=== PATIENT | male | born 1955 | race Caucasian/White ===

== ENCOUNTER 2023-10-17 15:08 | Inpatient (IN) | payer OTHER ==
[2023-10-17 17:01] LABS: BASO % 0.3 % (0-2.0); EOS % 0.6 % (0-4.5); HEMATOCRIT 46.3 % (35.4-49); HEMOGLOBIN 15.3 GM/dL (11.7-16.9); LYMPH % 15.3 % (8-40); MCH 32.3 pg (25.7-33.7); MCHC 33.1 g/dl (32.0-35.9); MEAN CELL VOLUME 97.6 fl (80-96); MEAN PLT VOLUME 9.1 fl (7.5-11.1); MONO % 7.9 % (3.8-10.2); NEUT % 75.9 % (42.8-82.8); PLATELET COUNT 230 10^3/uL (134-434); RBC 4.74 M/mm3 (4.00-5.60); WHITE BLOOD COUNT 10.7 K/mm3 (4.0-10.0)
[2023-10-17 17:03] LABS: VENOUS BASE EXCESS -2.2 mmol/L (-2-2); VENOUS O2 SATURATION 80.5 % (70-80); VENOUS PCO2 40.7 mmHg (38-52); VENOUS PH 7.368 (7.310-7.410)
[2023-10-17 17:24] LABS: POTASSIUM 5.7 mmol/L (3.5-5.1)
[2023-10-17 17:26] LABS: ALBUMIN 3.8 g/dl (3.4-5.0); CALCIUM 9.8 mg/dL (8.5-10.1)
[2023-10-17 17:27] LABS: BLOOD UREA NITROGEN 17.3 mg/dL (7-18)
[2023-10-17 17:29] LABS: CREATININE 0.7 mg/dL (0.55-1.3)
[2023-10-17 17:31] LABS: BILIRUBIN,TOTAL 0.8 mg/dL (0.2-1); TOT PROT 7.7 g/dl (6.4-8.2)
[2023-10-18] MEDS ORDERED: ALBUTEROL SO4 2.5/IPRATROPIUM 0.5 INH SOL 3 ML VIAL.NEB. NEB ONE (01:26)
[2023-10-18] MEDS ORDERED: BISACODYL 10 MG SUPP.RECT RC PRN ×2 (02:46→03:30)
[2023-10-18] MEDS ORDERED: SENNOSIDES 8.6MG TABLET (FP) PO PRN ×2 (02:46→03:30)
[2023-10-18] MEDS ORDERED: MIDODRINE HCL 5 MG TABLET PO PRN (02:46)
[2023-10-18] MEDS ORDERED: POLYETHYLENE GLYCOL (HEALTHYLAX) 3350 17 GM PACKET PO PRN (02:46)
[2023-10-18] MEDS ORDERED: DOCUSATE SODIUM 100 MG CAPSULE (FP) PO PRN ×2 (02:46→03:30)
[2023-10-18] MEDS ORDERED: BACLOFEN 10 MG TABLET (FP) PO PRN (02:46)
[2023-10-18] MEDS ORDERED: diazePAM 5 MG TABLET PO PRN (02:46)
[2023-10-18] MEDS ORDERED: oxyCODONE HCL 5 MG TABLET PO PRN (03:31)
[2023-10-18] MEDS: methylPREDNISolone NA SUCC 40 MG/1 ML VIAL IVPUSH SCH (03:59)
[2023-10-18 05:07] VITALS: BMI 19.9
[2023-10-18 06:39] LABS: BASO % 0.3 % (0-2.0); EOS % 2.1 % (0-4.5); HEMATOCRIT 43.8 % (35.4-49); HEMOGLOBIN 14.6 GM/dL (11.7-16.9); LYMPH % 19.2 % (8-40); MCH 32.5 pg (25.7-33.7); MCHC 33.2 g/dl (32.0-35.9); MEAN CELL VOLUME 97.8 fl (80-96); MEAN PLT VOLUME 9.3 fl (7.5-11.1); MONO % 10.2 % (3.8-10.2); NEUT % 68.2 % (42.8-82.8); PLATELET COUNT 205 10^3/uL (134-434); RBC 4.48 M/mm3 (4.00-5.60); RDW 12.9 % (11.9-15.9); WHITE BLOOD COUNT 9.8 K/mm3 (4.0-10.0)
[2023-10-18 06:54] LABS: POTASSIUM 3.7 mmol/L (3.5-5.1)
[2023-10-18 06:57] LABS: CALCIUM 8.7 mg/dL (8.5-10.1)
[2023-10-18 06:58] LABS: BLOOD UREA NITROGEN 18.5 mg/dL (7-18); MAGNESIUM 1.9 mg/dL (1.8-2.4)
[2023-10-18 07:00] LABS: ALBUMIN 3.3 g/dl (3.4-5.0)
[2023-10-18 07:01] LABS: CREATININE 0.6 mg/dL (0.55-1.3); PHOSPHOROUS 3.2 mg/dL (2.5-4.9)
[2023-10-18 07:02] LABS: BILIRUBIN,TOTAL 0.7 mg/dL (0.2-1); TOT PROT 6.5 g/dl (6.4-8.2)
[2023-10-18] MEDS: ALBUTEROL SO4 2.5/IPRATROPIUM 0.5 INH SOL 3 ML VIAL.NEB. NEB SCH (07:13)
[2023-10-18] MEDS: ENOXAPARIN NA (PORCINE) 40 MG/0.4 ML DISP.SYRIN SQ SCH (10:15)
[2023-10-18] MEDS: BACLOFEN 10 MG TABLET (FP) PO SCH (10:17)
[2023-10-18] MEDS: SILVER SULFADIAZINE 1% TOP CREAM 400 GM JAR TP SCH (11:30)
[2023-10-18] MEDS: AMOX TR/POT CLAV 875MG/125MG TABLETS (FP) PO SCH (17:30)
[2023-10-18] MEDS: predniSONE 20 MG TABLET (UD) PO SCH (17:30)
[2023-10-18] MEDS: MIDODRINE HCL 5 MG TABLET PO PRN (21:15)
[2023-10-18] MEDS: oxyCODONE HCL 5 MG TABLET PO ONE ×2 (21:40→22:32)
[2023-10-19] MEDS: oxyCODONE HCL 5 MG TABLET PO PRN (06:16)
[2023-10-19] MEDS: ACETAMINOPHEN 325 MG TABLET (FP) PO PRN (06:17)
[2023-10-19] MEDS: ASCORBIC ACID 500 MG TABLET (FP) PO SCH (10:34)
[2023-10-19] MEDS: MULTIVITAMINS (DAILY MVI) TABLET (FP) PO SCH (10:34)
[2023-10-19] MEDS: ZINC SULFATE 220 MG CAPSULE (FP) PO SCH (10:34)
[2023-10-19 11:01] VITALS: RESP 20
[2023-10-19 15:25] VITALS: BP 102/68; PULSE 78; TEMP 98
== END 2023-10-19 17:22 | disposition home or self-care (01) | DRG 190 ==
LOC: JER 15:08 → JERBED 21:45 → J4S 10-18 01:57 → OBSVTOIN 10-19 09:41
PROVIDERS: ADMIT Internal Medicine; ATTEND Internal Medicine
DX: J44.1 Chronic obstructive pulmonary disease with (acute) exacerbation (principal); G82.53 Quadriplegia, C5-C7 complete; L89.154 Pressure ulcer of sacral region, stage 4; J96.01 Acute respiratory failure with hypoxia; I95.1 Orthostatic hypotension; F17.210 Nicotine dependence, cigarettes, uncomplicated; Z74.01 Bed confinement status
CPT/HCPCS: 0241U-QW; 36415; 71045-TC-FY; 80053; 82803; 82962; 83036; 83735; 83880; 84100; 84484; 85025; 93005; 93010; 94640; 94761; 99285-25; E0186; G0378; J0475

== ENCOUNTER 2024-04-23 16:27 | Inpatient (IN) | payer OTHER ==
[2024-04-23] MEDS ORDERED: MIDODRINE HCL 5 MG TABLET ONE (16:57)
[2024-04-23 17:14] LABS: VENOUS BASE EXCESS -2.1 mmol/L (-2-2); VENOUS O2 SATURATION 46.1 % (70-80); VENOUS PCO2 59.6 mmHg (38-52); VENOUS PH 7.262 (7.310-7.410)
[2024-04-23 17:17] LABS: HEMATOCRIT 42.1 % (35.4-49); HEMOGLOBIN 13.9 GM/dL (11.7-16.9); MCH 32.2 pg (25.7-33.7); MCHC 32.9 g/dl (32.0-35.9); MEAN CELL VOLUME 97.8 fl (80-96); MEAN PLT VOLUME 8.8 fl (7.5-11.1); PLATELET COUNT 291 10^3/uL (134-434); RBC 4.31 M/mm3 (4.00-5.60); RDW 13.3 % (11.9-15.9); WHITE BLOOD COUNT 15.5 K/mm3 (4.0-10.0)
[2024-04-23 17:30] LABS: INR 0.94 (0.83-1.09); PROTHROMBIN TIME (PATIENT) 10.8 SEC (9.7-13.0)
[2024-04-23 17:32] LABS: ACTIVATED PTT 30.1 SECONDS (25.2-36.5)
[2024-04-23 17:36] LABS: POTASSIUM 5.3 mmol/L (3.5-5.1)
[2024-04-23 17:38] LABS: CALCIUM 9.6 mg/dL (8.5-10.1)
[2024-04-23 17:39] LABS: ALBUMIN 3.2 g/dl (3.4-5.0); BLOOD UREA NITROGEN 18.7 mg/dL (7-18)
[2024-04-23 17:42] LABS: CREATININE 0.6 mg/dL (0.55-1.3)
[2024-04-23 17:43] LABS: BILIRUBIN,TOTAL 0.9 mg/dL (0.2-1)
[2024-04-23] MEDS ORDERED: ACETYLCYSTEINE 20% 200MG/ML 30 ML VIAL *FOR ORAL / INH USE ONLY NEB ONE (17:47)
[2024-04-23] MEDS: SODIUM CHLORIDE 0.9% 500 ML INFUS.BAG IV ONE (17:50)
[2024-04-23 17:51] LABS: LACTIC ACID 2.3 mmol/L (0.4-2.0)
[2024-04-23 18:09] LABS: ANISOCYTOSIS 1+; MACROCYTOSIS 0
[2024-04-23] MEDS: MIDODRINE HCL 5 MG TABLET PO ONE (19:26)
[2024-04-23] MEDS ORDERED: PIPERACILLIN/TAZOB 4.5 GM 4.5 GM/100 ML BAG IVPB ONE (19:47)
[2024-04-23] MEDS ORDERED: VANCOMYCIN 1 GM PREMIX (F) 1 GM/200 ML BAG ONE (19:48)
[2024-04-23] MEDS: PIPERACILLIN/TAZOB 4.5 GM 4.5 GM in DEXTROSE 5%-WATER 100 ML IVPB ONE (19:54)
[2024-04-23] MEDS ORDERED: oxyCODONE HCL 5 MG TABLET ONE (20:20)
[2024-04-23] MEDS ORDERED: BACLOFEN 10 MG TABLET (FP) ONE (20:20)
[2024-04-23] MEDS: BACLOFEN 10 MG TABLET (FP) PO ONE ×2 (20:27→20:29)
[2024-04-23] MEDS: oxyCODONE HCL 5 MG TABLET PO ONE (20:27)
[2024-04-23] MEDS: VANCOMYCIN 1,000 MG in DEXTROSE 5%-WATER - 250 ML IVPB ONE (20:38)
[2024-04-23 22:02] LABS: EPI CELLS 3 /uL (0-25.1); HYALINE CASTS 1 /uL (0-3.1); PH,URINE 5.5 (5.0-8.0); URINE APPEARANCE CLEAR; URINE BACTERIA 1661 /uL (0-1359); URINE BILIRUBIN NEGATIVE (NEGATIVE); URINE COLOR YELLOW; URINE GLUCOSE (UA) NEGATIVE (NEGATIVE); URINE KETONE 1+ (NEGATIVE); URINE LEUK ESTERASE TRACE (NEGATIVE); URINE NITRITE POSITIVE (NEGATIVE); URINE PROTEIN 1+ (NEGATIVE); URINE RBC 19 /uL (0-23.9); URINE UROBILINOGEN 0.2 mg/dL (0.2-1.0); URINE WBC 33 /uL (0-25.8)
[2024-04-24] MEDS: ACETAMINOPHEN 325 MG TABLET (FP) PO PRN (02:44)
[2024-04-24] MEDS: SODIUM ZIRCONIUM CYCLOSILICATE (LOKELMA) 5 GM PACKET PO ONE (02:45)
[2024-04-24] MEDS: SODIUM CHLORIDE 1,000 ML IV SCH (02:46)
[2024-04-24] MEDS: oxyCODONE HCL 5 MG TABLET PO PRN (02:47)
[2024-04-24] MEDS: MIDODRINE HCL 5 MG TABLET PO PRN (02:50)
[2024-04-24] MEDS: PIPERACILLIN/TAZOB 4.5 GM 4.5 GM in DEXTROSE 5%-WATER 100 ML IVPB SCH (06:21)
[2024-04-24 07:42] LABS: HEMATOCRIT 40.4 % (35.4-49); LYMPH % 7.9 % (8-40); MCH 31.9 pg (25.7-33.7); MCHC 32.1 g/dl (32.0-35.9); MEAN CELL VOLUME 99.4 fl (80-96); MEAN PLT VOLUME 8.6 fl (7.5-11.1); NEUT % 84.3 % (42.8-82.8); PLATELET COUNT 244 10^3/uL (134-434); RBC 4.06 M/mm3 (4.00-5.60); WHITE BLOOD COUNT 11.6 K/mm3 (4.0-10.0)
[2024-04-24 07:43] LABS: BASO % 0.2 % (0-2.0); EOS % 0.9 % (0-4.5); MONO % 6.7 % (3.8-10.2)
[2024-04-24] MEDS: ALBUTEROL SO4 2.5/IPRATROPIUM 0.5 INH SOL 3 ML VIAL.NEB. NEB SCH (07:50)
[2024-04-24] MEDS: ALBUTEROL SO4 2.5/IPRATROPIUM 0.5 INH SOL 3 ML VIAL.NEB. NEB ONE (07:55)
[2024-04-24 08:20] LABS: POTASSIUM 3.6 mmol/L (3.5-5.1)
[2024-04-24 08:23] LABS: CALCIUM 9.1 mg/dL (8.5-10.1)
[2024-04-24 08:24] LABS: BLOOD UREA NITROGEN 12.9 mg/dL (7-18)
[2024-04-24 08:27] LABS: PHOSPHOROUS 2.8 mg/dL (2.5-4.9)
[2024-04-24 08:28] LABS: CREATININE 0.4 mg/dL (0.55-1.3)
[2024-04-24] MEDS: methylPREDNISolone NA SUCC 40 MG/1 ML VIAL IVPUSH SCH ×2 (08:28→21:20)
[2024-04-24 08:29] LABS: BILIRUBIN,TOTAL 0.6 mg/dL (0.2-1)
[2024-04-24 08:30] LABS: TOT PROT 6.3 g/dl (6.4-8.2)
[2024-04-24] MEDS: BACLOFEN 10 MG TABLET (FP) PO PRN (08:57)
[2024-04-24] MEDS: ENOXAPARIN NA (PORCINE) 40 MG/0.4 ML DISP.SYRIN SQ SCH (09:15)
[2024-04-24] MEDS: VANCOMYCIN/WATER FOR INJ (PEG) 1,000 MG/200 ML BAG IVPB ONE (09:16)
[2024-04-24] MEDS ORDERED: PIPERACILLIN/TAZOB 4.5 GM 4.5 GM in DEXTROSE 5%-WATER 100 ML IVPB SCH (10:00)
[2024-04-24] MEDS ORDERED: hydrALAZINE HCL 20 MG/ML VIAL IVPUSH PRN (17:41)
[2024-04-24] MEDS: SILVER SULFADIAZINE 1% TOP CREAM 50 GM JAR TP SCH (20:23)
[2024-04-24] MEDS ORDERED: methylPREDNISolone NA SUCC 40 MG/1 ML VIAL IVPUSH SCH (21:00)
[2024-04-25] MEDS ORDERED: PIPERACILLIN/TAZOBACTAM 4.5 GM VIAL IVPB ONE (06:43)
[2024-04-25] MEDS: diazePAM 5 MG TABLET PO PRN (07:57)
[2024-04-25 08:09] LABS: BASO % 0.1 % (0-2.0); HEMATOCRIT 41.7 % (35.4-49); HEMOGLOBIN 13.9 GM/dL (11.7-16.9); LYMPH % 6.8 % (8-40); MCH 32.7 pg (25.7-33.7); MCHC 33.5 g/dl (32.0-35.9); MEAN CELL VOLUME 97.9 fl (80-96); MEAN PLT VOLUME 8.5 fl (7.5-11.1); NEUT % 86.1 % (42.8-82.8); PLATELET COUNT 272 10^3/uL (134-434); RBC 4.26 M/mm3 (4.00-5.60); RDW 13.2 % (11.9-15.9); WHITE BLOOD COUNT 9.4 K/mm3 (4.0-10.0)
[2024-04-25 08:31] LABS: POTASSIUM 3.8 mmol/L (3.5-5.1)
[2024-04-25 08:33] LABS: BLOOD UREA NITROGEN 13.4 mg/dL (7-18); CALCIUM 9.3 mg/dL (8.5-10.1); MAGNESIUM 2.1 mg/dL (1.8-2.4)
[2024-04-25 08:36] LABS: CREATININE 0.4 mg/dL (0.55-1.3)
[2024-04-25 08:37] LABS: PHOSPHOROUS 1.8 mg/dL (2.5-4.9)
[2024-04-25 08:38] LABS: BILIRUBIN,TOTAL 0.4 mg/dL (0.2-1); TOT PROT 6.7 g/dl (6.4-8.2)
[2024-04-25] MEDS: PIPERACILLIN/TAZOB 2.25 GM 2.25 GM/50 ML BAG IVPB SCH (09:03)
[2024-04-25 14:17] VITALS: BMI 20.5
[2024-04-25] MEDS: AMINO ACIDS/PROTEIN HYDROLYS 30 ML LIQUID.PKT PO SCH (17:17)
[2024-04-26 07:59] LABS: HEMATOCRIT 42.3 % (35.4-49); MCH 32.3 pg (25.7-33.7); MCHC 33.1 g/dl (32.0-35.9); MEAN CELL VOLUME 97.3 fl (80-96); MEAN PLT VOLUME 8.6 fl (7.5-11.1); PLATELET COUNT 280 10^3/uL (134-434); RBC 4.34 M/mm3 (4.00-5.60); RDW 12.7 % (11.9-15.9); WHITE BLOOD COUNT 10.9 K/mm3 (4.0-10.0)
[2024-04-26 08:18] LABS: POTASSIUM 3.7 mmol/L (3.5-5.1)
[2024-04-26 08:21] LABS: CALCIUM 9.6 mg/dL (8.5-10.1)
[2024-04-26 08:22] LABS: ALBUMIN 2.8 g/dl (3.4-5.0); BLOOD UREA NITROGEN 16.6 mg/dL (7-18); MAGNESIUM 2.3 mg/dL (1.8-2.4)
[2024-04-26 08:24] LABS: PHOSPHOROUS 2.4 mg/dL (2.5-4.9)
[2024-04-26 08:26] LABS: CREATININE 0.4 mg/dL (0.55-1.3)
[2024-04-26 08:27] LABS: BILIRUBIN,TOTAL 0.5 mg/dL (0.2-1); TOT PROT 6.3 g/dl (6.4-8.2)
[2024-04-26 10:02] LABS: ANISOCYTOSIS 0; MACROCYTOSIS 0
[2024-04-26] MEDS: MULTIVITAMINS (DAILY MVI) TABLET (FP) PO SCH (10:12)
[2024-04-26] MEDS: ASCORBIC ACID 500 MG TABLET (FP) PO SCH (10:12)
[2024-04-26] MEDS: BISACODYL 5 MG TABLET.DR (FP) PO ONE (18:00)
[2024-04-26] MEDS: methylPREDNISolone NA SUCC 40 MG/1 ML VIAL IVPUSH SCH (18:03)
[2024-04-26] MEDS: NAPH,MB-DB/K PH,MBDB POWDER PACKET PO ONE (18:31)
[2024-04-26] MEDS: SENNOSIDES 8.6MG TABLET (FP) PO SCH (21:57)
[2024-04-27 07:39] LABS: POTASSIUM 3.9 mmol/L (3.5-5.1)
[2024-04-27 07:42] LABS: ALBUMIN 2.8 g/dl (3.4-5.0); BLOOD UREA NITROGEN 19.4 mg/dL (7-18); CALCIUM 9.7 mg/dL (8.5-10.1); MAGNESIUM 2.2 mg/dL (1.8-2.4)
[2024-04-27 07:46] LABS: BILIRUBIN,TOTAL 0.5 mg/dL (0.2-1); CREATININE 0.4 mg/dL (0.55-1.3); PHOSPHOROUS 3.6 mg/dL (2.5-4.9)
[2024-04-27] MEDS: ERTAPENEM SODIUM 1 GM in SODIUM CHLORIDE 50 ML IVPB SCH (10:16)
[2024-04-28 07:21] LABS: HEMOGLOBIN 14.6 GM/dL (11.7-16.9); MCH 31.8 pg (25.7-33.7); MCHC 32.5 g/dl (32.0-35.9); MEAN CELL VOLUME 97.9 fl (80-96); MEAN PLT VOLUME 8.6 fl (7.5-11.1); PLATELET COUNT 300 10^3/uL (134-434); RBC 4.59 M/mm3 (4.00-5.60); RDW 12.6 % (11.9-15.9); WHITE BLOOD COUNT 10.3 K/mm3 (4.0-10.0)
[2024-04-28 07:39] LABS: POTASSIUM 4.1 mmol/L (3.5-5.1)
[2024-04-28 07:40] LABS: ALBUMIN 2.8 g/dl (3.4-5.0); CALCIUM 9.7 mg/dL (8.5-10.1)
[2024-04-28 07:41] LABS: BLOOD UREA NITROGEN 22.8 mg/dL (7-18)
[2024-04-28 07:44] LABS: CREATININE 0.4 mg/dL (0.55-1.3)
[2024-04-28 07:45] LABS: BILIRUBIN,TOTAL 0.5 mg/dL (0.2-1)
[2024-04-28] MEDS: BACLOFEN 10 MG TABLET (FP) PO SCH (13:58)
[2024-04-28] MEDS: MIDODRINE HCL 5 MG TABLET PO SCH (13:59)
[2024-04-28] MEDS ORDERED: BISACODYL 10 MG SUPP.RECT PR PRN (19:01)
[2024-04-28] MEDS: BISACODYL 10 MG SUPP.RECT PR ONE (19:42)
[2024-04-28] MEDS: POLYETHYLENE GLYCOL (HEALTHYLAX) 3350 17 GM PACKET PO SCH (22:25)
[2024-04-29 07:34] LABS: HEMATOCRIT 42.1 % (35.4-49); HEMOGLOBIN 13.8 GM/dL (11.7-16.9); MCH 32.1 pg (25.7-33.7); MCHC 32.7 g/dl (32.0-35.9); MEAN CELL VOLUME 97.9 fl (80-96); MEAN PLT VOLUME 8.8 fl (7.5-11.1); PLATELET COUNT 282 10^3/uL (134-434); RDW 12.4 % (11.9-15.9); WHITE BLOOD COUNT 14.3 K/mm3 (4.0-10.0)
[2024-04-29 08:01] LABS: POTASSIUM 3.9 mmol/L (3.5-5.1)
[2024-04-29 08:12] LABS: CALCIUM 9.3 mg/dL (8.5-10.1)
[2024-04-29 08:13] LABS: ALBUMIN 2.7 g/dl (3.4-5.0); BLOOD UREA NITROGEN 24.5 mg/dL (7-18)
[2024-04-29 08:16] LABS: CREATININE 0.4 mg/dL (0.55-1.3)
[2024-04-29 08:17] LABS: BILIRUBIN,TOTAL 0.4 mg/dL (0.2-1); TOT PROT 5.6 g/dl (6.4-8.2)
[2024-04-29 20:35] VITALS: BP 131/119; PULSE 60; RESP 12; TEMP 98.9
== END 2024-04-29 20:25 | disposition home health service (06) | DRG 871 ==
LOC: JER 16:27 → JERBED 18:57 → J2W 22:04
PROVIDERS: ADMIT Internal Medicine; ATTEND Internal Medicine
DX: A41.9 Sepsis, unspecified organism (principal); G82.50 Quadriplegia, unspecified; L89.154 Pressure ulcer of sacral region, stage 4; J96.01 Acute respiratory failure with hypoxia; J18.9 Pneumonia, unspecified organism; R65.21 Severe sepsis with septic shock; E87.1 Hypo-osmolality and hyponatremia; J90 Pleural effusion, not elsewhere classified; R65.20 Severe sepsis without septic shock; S14.109S Unspecified injury at unspecified level of cervical spinal cord, sequela; J44.9 Chronic obstructive pulmonary disease, unspecified; F12.90 Cannabis use, unspecified, uncomplicated; Z99.3 Dependence on wheelchair; E87.5 Hyperkalemia; N31.9 Neuromuscular dysfunction of bladder, unspecified; K59.00 Constipation, unspecified; R74.01 Elevation of levels of liver transaminase levels; X58.XXXA Exposure to other specified factors, initial encounter; Y93.9 Activity, unspecified; Y92.89 Other specified places as the place of occurrence of the external cause; Y99.9 Unspecified external cause status
CPT/HCPCS: 0241U-QW; 11043; 36415; 71045-TC-FY; 76775-TC; 76856-TC; 80053; 81003; 82803; 82962; 83605; 83735; 84100; 84484; 85025; 85027; 85610; 85730; 87040; 87070; 87081; 87086; 87186; 87205; 87481; 87899; 93005; 93010; 93306-TC; 94010; 94640; 94761; 99285-25; E0186; J0475